=== PATIENT | female | born 1950 | race Caucasian/White ===

== ENCOUNTER 2017-02-18 14:05 | Emergency (ER) | payer MEDICARE, MEDICAID ==
[2017-02-18] MEDS ORDERED: OXYCODONE-ACETAMINOPHEN 5-325 MG TABLET PO ONE (14:27)
[2017-02-18] MEDS ORDERED: ONDANSETRON 4 MG TAB.RAPDIS PO ONE (14:27)
--- NOTE | 2017-02-18 14:31 | ER Document Report ---
ED Medical Screen (RME) - General Chief Complaint: Fall Injury Stated Complaint: FALL RIGHT ARM INJURY Mode of Arrival: Ambulatory Information source: Patient TRAVEL OUTSIDE OF THE [place] IN LAST 30 DAYS: No - HPI Onset: Yesterday - LAST PM Onset/Duration: Sudden Quality of pain: Sharp, Throbbing Severity: Moderate Associated Symptoms: None Exacerbated by: Movement Relieved by: Remaining still - Related Data Allergies/Adverse Reactions: No Known Allergies Allergy (Verified 02/18/17 14:24) Past Medical History - General Information source: Patient - Past Medical History Cardiac Medical History: Reports: Hx Hypercholesterolemia, Hx Hypertension Pulmonary Medical History: Reports: Hx Pneumonia Denies: Hx Tuberculosis Renal/ Medical History: Denies: Hx Peritoneal Dialysis Past Surgical History: Reports: Hx Tubal Ligation. Denies: Hx Pacemaker - Immunizations Hx Diphtheria, Pertussis, Tetanus Vaccination: Yes Review of Systems - Review of Systems Constitutional: No symptoms reported EENT: No symptoms reported Cardiovascular: No symptoms reported Respiratory: No symptoms reported Musculoskeletal: See HPI Physical Exam - Vital signs Vitals: Temp Pulse Resp BP Pulse Ox 98.1 F 92 20 226/105 H 99 02/18/17 14:10 02/18/17 14:10 02/18/17 14:10 02/18/17 14:10 02/18/17 14:10 Interpretation: Hypertensive. No: Tachycardic, Tachypneic, Febrile - General General appearance: Appears well, Alert In distress: None - HEENT Head: Normocephalic Eyes: Normal Conjunctiva: Normal - Respiratory Respiratory status: No respiratory distress Chest status: Other - R. BREAST ABSENT - Cardiovascular Rhythm: Regular - Back Back: Normal - Extremities General upper extremity: No: Normal inspection - EDEMA, TENDERNESS R. UPPER EXTREMITY FROM MID-ARM TO MID-FOREARM. N/V OK DISTALLY General lower extremity: Normal inspection - Neurological Neuro grossly intact: Yes Cognition: Normal Orientation: AAOx4 - Psychological Associated symptoms: Normal affect, Normal mood - Skin Skin Temperature: Warm Skin Moisture: Dry Skin Color: Normal Skin Turgor: Elastic Course - Vital Signs Vital signs: Temp Pulse Resp BP Pulse Ox 97.5 F 76 18 141/68 H 92 02/18/17 16:21 02/18/17 16:21 02/18/17 16:21 02/18/17 16:21 02/18/17 16:21 Doctor's Discharge - Discharge Clinical Impression: Elbow fracture, right Qualifiers: Encounter type: initial encounter Fracture type: closed Qualified Code(s): S42.401A - Unspecified fracture of lower end of right humerus, initial encounter for closed fracture Elbow injury Qualifiers: Encounter type: initial encounter Laterality: right Qualified Code(s): S59.901A - Unspecified injury of right elbow, initial encounter Condition: Stable Disposition: HOME, SELF-CARE Instructions: Splint Precautions ([facility]), Supracondylar Fracture of the Elbow ( [facility]) Prescriptions: Oxycodone HCl/Acetaminophen [Percocet 5-325 mg Tablet] 1 - 2 tab PO Q4H PRN #25 tablet PRN Reason: Referrals: PEPE TAYLOR MD [ACTIVE STAFF] - Follow up tomorrow
[2017-02-18] MEDS ORDERED: HYDROMORPHONE HCL INJ/PF 2 MG/ML AMPULE IM ONE (15:03)
--- NOTE | 2017-02-18 15:47 | ER Document Report ---
ED General - General Chief Complaint: Fall Injury Stated Complaint: FALL RIGHT ARM INJURY Mode of Arrival: Ambulatory Information source: Patient Notes: 59-year-old female presents with complaints of right elbow pain since last night. Patient notes she tripped and landed on her elbow but did not come in. Patient denies any other injuries TRAVEL OUTSIDE OF THE [place] IN LAST 30 DAYS: No - HPI Onset: Yesterday Onset/Duration: Sudden Quality of pain: Sharp Severity: Moderate Pain Level: 2 Associated symptoms: Other Exacerbated by: Movement Relieved by: Denies Similar symptoms previously: No Recently seen / treated by doctor: No - Related Data Allergies/Adverse Reactions: No Known Allergies Allergy (Verified 02/18/17 14:24) Past Medical History - General Information source: Patient - Social History Smoking Status: Never Smoker Cigarette use (# per day): No Chew tobacco use (# tins/day): No Smoking Education Provided: No Frequency of alcohol use: Heavy Family History: Reviewed & Not Pertinent Patient has suicidal ideation: No Patient has homicidal ideation: No - Past Medical History Cardiac Medical History: Reports: Hx Hypercholesterolemia, Hx Hypertension Pulmonary Medical History: Reports: Hx Pneumonia Denies: Hx Tuberculosis Renal/ Medical History: Denies: Hx Peritoneal Dialysis Past Surgical History: Reports: Hx Tubal Ligation. Denies: Hx Pacemaker - Immunizations Hx Diphtheria, Pertussis, Tetanus Vaccination: Yes Hx Pneumococcal Vaccination: 09/03/12 Review of Systems - Review of Systems Notes: REVIEW OF SYSTEMS: CONSTITUTIONAL : Denies fever, chills, or sweats. Denies recent illness. EENT: Denies eye, ear, throat, or mouth pain or symptoms. Denies nasal or sinus congestion or discharge. Denies throat, tongue, or mouth swelling or difficulty swallowing. CARDIOVASCULAR: Denies chest pain. Denies palpitations or racing or irregular heart beat. Denies ankle edema. RESPIRATORY: Denies cough, cold, or chest congestion. Denies shortness of breath, difficulty breathing, or wheezing. GASTROINTESTINAL: Denies abdominal pain or distention. Denies nausea, vomiting , or diarrhea. Denies blood in vomitus, stools, or per rectum. Denies black, tarry stools. Denies constipation. GENITOURINARY: Denies difficulty urinating, painful urination, burning, frequency, blood in urine, or discharge. FEMALE GENITOURINARY: Denies vaginal bleeding, heavy or abnormal periods, irregular periods. Denies vaginal discharge or odor. MUSCULOSKELETAL: Admits to right elbow pain SKIN: Denies rash, lesions or sores. HEMATOLOGIC : Denies easy bruising or bleeding. LYMPHATIC: Denies swollen, enlarged glands. NEUROLOGICAL: Denies confusion or altered mental status. Denies passing out or loss of consciousness. Denies dizziness or lightheadedness. Denies headache. Denies weakness or paralysis or loss of use of either side. Denies problems with gait or speech. Denies sensory loss, numbness, or tingling. Denies seizures. PSYCHIATRIC: Denies anxiety or stress. Denies depression, suicidal ideation, or homicidal ideation. ALL OTHER SYSTEMS REVIEWED AND NEGATIVE. Dictation was performed using [employer] voice recognition software PHYSICAL EXAMINATION: GENERAL: Well-appearing, well-nourished and in no acute distress. HEAD: Atraumatic, normocephalic. EYES: Pupils equal round and reactive to light, extraocular movements intact, conjunctiva are normal. ENT: Nares patent, oropharynx clear without exudates. Moist mucous membranes. NECK: Normal range of motion, supple without lymphadenopathy LUNGS: Breath sounds clear to auscultation bilaterally and equal. No wheezes rales or rhonchi. HEART: Regular rate and rhythm without murmurs ABDOMEN: Soft, nontender, nondistended abdomen. No guarding, no rebound. No masses appreciated. Female : deferred Musculoskeletal: Limited range of motion of the right elbow with obvious ecchymosis swelling superficial abrasion NEUROLOGICAL: Cranial nerves grossly intact. Normal speech, normal gait. Normal sensory, motor exams PSYCH: Normal mood, normal affect. SKIN: Warm, Dry, normal turgor, no rashes or lesions noted. Physical Exam - Vital signs Vitals: Temp Pulse Resp BP Pulse Ox 98.1 F 92 20 226/105 H 99 02/18/17 14:10 02/18/17 14:10 02/18/17 14:10 02/18/17 14:10 02/18/17 14:10 Course - Re-evaluation Re-evalutation: 02/18/17 16:01 Area was cleansed placed in splint, I did speak with , requests pt follow up in his office After performing a Medical Screening Examination, I estimate there is LOW risk for INTRACRANIAL HEMORRHAGE, UNSTABLE SPINE FRACTURE, CENTRAL CORD SYNDROME, CAUDA EQUINA, THORACIC AORTIC DISSECTION, PNEUMOTHORAX, PERFORATED BOWEL, RUPTURED ABDOMINAL AORTIC ANEURYSM, ACUTE TENDON RUPTURE, COMPARTMENT SYNDROME, or OPEN FRACTURE, thus I consider the discharge disposition reasonable. Also, there is no evidence or peritonitis, sepsis, or toxicity. I have reevaluated this patient multiple times and no significant life threatening changes are noted. The patient and I have discussed the diagnosis and risks, and we agree with discharging home to follow-up with their primary doctor with the understanding that symptoms and presentations can change. We also discussed returning to the Emergency Department immediately if new or worsening symptoms occur. We have discussed the symptoms which are most concerning (e.g., bloody stool, fever, changing or worsening pain, vomiting) that necessitate immediate return. - Vital Signs Vital signs: Temp Pulse Resp BP Pulse Ox 98.1 F 92 20 226/105 H 99 02/18/17 14:10 02/18/17 14:10 02/18/17 14:10 02/18/17 14:10 02/18/17 14:10 - Diagnostic Test Radiology reviewed: Image reviewed, Reports reviewed - Report given to patient Procedures - Immobilization Right Shoulder Time completed: 16:04 Pre-Proc Neuro Vasc Exam: Normal Immobilizer type: Long arm posterior, Sling Performed by: PCT Post-Proc Neuro Vasc Exam: Normal Alignment checked and good: Yes Discharge - Discharge Clinical Impression: Elbow fracture, right Qualifiers: Encounter type: initial encounter Fracture type: closed Qualified Code(s): S42.401A - Unspecified fracture of lower end of right humerus, initial encounter for closed fracture Elbow injury Qualifiers: Encounter type: initial encounter Laterality: right Qualified Code(s): S59.901A - Unspecified injury of right elbow, initial encounter Condition: Stable Disposition: HOME, SELF-CARE Instructions: Splint Precautions ([facility]), Supracondylar Fracture of the Elbow ( [facility]) Prescriptions: Oxycodone HCl/Acetaminophen [Percocet 5-325 mg Tablet] 1 - 2 tab PO Q4H PRN #25 tablet PRN Reason: Referrals: PEPE TAYLOR MD [ACTIVE STAFF] - Follow up tomorrow
[2017-02-18 16:25] VITALS: BP 141/68
== END 2017-02-18 16:21 | disposition home or self-care (01) ==
LOC: ER 14:05
PROC: 2W38X1Z Immobilization of Right Upper Extremity using Splint (ICD-10-PCS; principal; 2017-02-18)
DX: S42.401A Unspecified fracture of lower end of right humerus, initial encounter for closed fracture (principal); W01.10XA Fall on same level from slipping, tripping and stumbling with subsequent striking against unspecified object, initial encounter; E78.00 Pure hypercholesterolemia, unspecified; I10 Essential (primary) hypertension; Z98.51 Tubal ligation status
CPT/HCPCS: 99284; 96372; 73080; 29105; A9270 ×2; J1170; S0119

== ENCOUNTER → 2017-02-20 | Outpatient (CLI) | payer MEDICARE, MEDICAID | LOC: RAD 10:43 | PROVIDERS: ATTEND Orthopaedic Surgery | DX: S59.901A Unspecified injury of right elbow, initial encounter (principal) ==

== ENCOUNTER 2017-03-06 09:49 | Inpatient (IN) | payer MEDICARE, MEDICAID ==
[2017-03-02 11:44] LABS: ABSOLUTE EOSINOPHILS # (AUTO) 0.1 10^3/uL (0.0-0.6); ABSOLUTE LYMPHOCYTES (AUTO) 1.4 10^3/uL (0.5-4.7); ABSOLUTE MONOCYTES (AUTO) 0.5 10^3/uL (0.1-1.4); ABSOLUTE NEUT (AUTO) 4.2 10^3/uL (1.7-8.2); BASOPHILS % (AUTO) 0.7 % (0-2); EOSINOPHILS % (AUTO) 1.3 % (0-6); HEMATOCRIT 37.1 % (36.0-47.0); HEMOGLOBIN 12.6 g/dL (12.0-15.5); HGB HCT DIFFERENCE 0.7; LYMPHOCYTES % (AUTO) 22.2 % (13-45); MEAN CORPUSCULAR HEMOGLOBIN 30.4 pg (27.0-33.4); MEAN CORPUSCULAR VOLUME 90 fl (80-97); MONOCYTES % (AUTO) 7.7 % (3-13); RED BLOOD COUNT 4.14 10^6/uL (3.72-5.28); SEGMENTED NEUTROPHILS % (AUTO) 68.1 % (42-78); WHITE BLOOD COUNT 6.1 10^3/uL (4.0-10.5)
[2017-03-02 11:52] LABS: APPEARANCE,URINE CLOUDY; BILIRUBIN,URINE NEGATIVE (NEGATIVE); GLUCOSE, URINE NEGATIVE (NEGATIVE); KETONES,URINE NEGATIVE (NEGATIVE); LEUKOCYTE ESTERASE,URINE NEGATIVE (NEGATIVE); NITRITE,URINE NEGATIVE (NEGATIVE); PROTEIN,URINE NEGATIVE (NEGATIVE); URINE SPECIFIC GRAVITY 1.021; UROBILINOGEN,URINE NEGATIVE mg/dL (<2.0)
[2017-03-02 12:05] LABS: ANION GAP 12 (5-19); BLOOD UREA NITROGEN 18 mg/dL (7-20); CALCIUM 9.3 mg/dL (8.4-10.2); CARBON DIOXIDE 30 mmol/L (22-30); CHLORIDE 99 mmol/L (98-107); CREATININE RESULT 0.66 mg/dL (0.52-1.25); GLUCOSE 88 mg/dL (75-110); POTASSIUM 3.5 mmol/L (3.6-5.0); SODIUM 140.8 mmol/L (137-145)
--- NOTE | 2017-03-02 12:08 | EKG REPORT ---
SEVERITY:- NORMAL ECG - SINUS RHYTHM : Confirmed by: Remington Becerril 02-Mar-2017 12:07:03
[~2017-03-06 09:49] MED LIST: CEFAZOLIN 2 GM/D5W RTU 2 GM/50 ML RTUPB IV PRN; LACTATED RINGERS 1000 ML IV PRN; LIDOCAINE 0.5% INJ-PF (5 MG/ML) 50 ML SDV SUBCUT PRN
[2017-03-06] MEDS ORDERED: ALBUTEROL SULFATE 0.083% NEB 2.5 MG/3 ML AMPUL NEB ONE ×2 (10:39→11:00)
[2017-03-06] MEDS ORDERED: HYDROMORPHONE HCL INJ/PF 2 MG/ML AMPULE ONE (12:34)
[2017-03-06] MEDS ORDERED: FENTANYL CITRATE INJ/PF 250 MCG/5 ML AMPULE ONE (12:34)
[2017-03-06] MEDS ORDERED: IBUPROFEN INJ 800 MG/8 ML VIAL IV ONE (12:35)
[2017-03-06] MEDS ORDERED: PROPOFOL INJ 200 MG/20 ML VIAL IV ONE (12:35)
[2017-03-06] MEDS ORDERED: MIDAZOLAM 2 MG/2 ML INJ ONE (12:35)
[2017-03-06] MEDS ORDERED: FENTANYL CITRATE INJ/PF 100 MCG/2 ML AMPUL IV PRN ×3 (12:37)
[2017-03-06] MEDS ORDERED: VANCOMYCIN HCL INJ 1000 MG VIAL ONE (15:24)
[2017-03-06] MEDS ORDERED: BUPIVACAINE HCL 0.5 % INJ/PF 30 ML SDV ONE (15:56)
[2017-03-06] MEDS ORDERED: ONDANSETRON 4 MG TAB.RAPDIS PO PRN (16:37)
[2017-03-06] MEDS ORDERED: MORPHINE SULFATE 10 MG/ML INJ IV PRN ×3 (16:37)
[2017-03-06] MEDS ORDERED: DIPHENHYDRAMINE HCL 50 MG/ML VIAL IV PRN (16:37)
[2017-03-06] MEDS ORDERED: MORPHINE SULFATE 10 MG/ML INJ IM PRN (16:37)
[2017-03-06] MEDS ORDERED: POTASSI CL 20 MEQ/D5-1/2NS 1L 1,000 ML IV PRN (16:37)
[2017-03-06] MEDS ORDERED: IPRATROPIUM/ALBUTEROL 0.5-2.5 MG/3 ML AMPUL NEB ONE (16:55)
[2017-03-06] MEDS ORDERED: LABETALOL HCL INJ 20 MG/4 ML DISP.SYRIN IV ONE (16:55)
--- NOTE | 2017-03-06 17:05 | Operative Report ---
Operative Report DATE OF SURGERY: 03/06/17 PREOPERATIVE DIAGNOSIS: Right Comminuted Distal Humerus Fracture, Olecranon Fracture POSTOPERATIVE DIAGNOSIS: Same + Contusion Ulnar Nerve OPERATION: 1. Total Elbow Arthoplasty. 2. Ulnar Nerve Neurolysis w/ Subcutaneous Transposition. 3. ORIF Olecranon SURGEON: BONITA ROBERT ANESTHESIA: GA COMPLICATIONS: None ESTIMATED BLOOD LOSS: 75cc PROCEDURE: Indication for above procedure: 67-year-old female who sustained a fall onto her right elbow resulting in a comminuted distal humerus fracture with concomitant olecranon fracture. She said swelling followed up at my office at which point we discussed treatment options including nonoperative treatment versus operative intervention which includes open reduction internal fixation versus total elbow arthroplasty after discussing the operative alternatives a joint decision was made to proceed with operative intervention. Specific risks of total elbow arthroplasty were explained including infection, neurovascular injury, failure, periprosthetic fracture, need for chronic weightbearing restrictions patient verbalized understanding consented for the procedure. Procedure In Detail: Patient was seen and evaluated in the preoperative holding area. The RIGHT upper extremity was initialized and marked. Patient received 2g of Ancef IV for bacterial prophylaxis. Patient was taken back to the operative room where transferred to the operative table and placed under general anesthesia. Once they were adequately anesthetized a surgical team debriefing was performed ensuring all instrumentation was available, the surgical procedure was discussed with possible concerns reviewed. The upper extremity was prepped with ChloraPrep and draped in a sterile fashion. A timeout was done identifying correct patient, procedure and extremity everyone in attendance agree with this and verbalized no concerns. A sterile tourniquet was placed around the right upper extremity. The extremity was then exsanguinated and tourniquet inflated to 250 mmHg. Skin incision was made centered over the olecranon curved in a lateral direction. Blunt dissection was performed elevating skin flaps. There was disruption of the extensor mechanism along with the olecranon fracture and thus a original En-Moorey flap could not be performed. I first identified the ulnar nerve proximally as it passed the medial intermuscular septum there was significant scarring of the nerve to the displaced medial epicondyle fracture the nerve was followed distally as it entered the cubital tunnel. Significant thinning of the nerve and contusion was identified at this level. A vessel loop was placed around the nerve I continued to tract the nerve I distal direction as it entered the 2 heads of the FCU the fascia of the FCU was then carefully elevated at this juncture the nerve was released proximally as it crossed the medial intermuscular septum/triceps and distally in the FCU the first motor branch was identified and preserved. I then carefully transposed the ulnar nerve within a subcutaneous pocket medially which would allow for later transposition at the completion of the case. I then released the posterior band of the MCL and took a large flap of tissue off the olecranon to allow for later repair my extensor mechanism despite its disruption at the level of the olecranon fracture. The olecranon tip was maintained to its attachment within the triceps tendon. At this juncture the ulnohumeral joint was exposed. There is significant comminution of the trochlea and capitellum. Given the amount of comminution and bone loss at the level of the supracondylar aspect of the distal humerus I do not feel open reduction fixation would be feasible and patient would likely achieve a better outcome with total elbow arthroplasty despite the extensor mechanism disruption. I then carefully dissected out the lateral condyle fracture fragments and removed them in their entirety along with the capitellum, medial condyle and trochlea. I then proceeded with preparation of the distal humerus. With a bur the humeral canal was identified. I then began with my starting awl and placed the cutting guide onto the distal humerus. Freshening bone cuts were completed and a begin broaching broaching to a extra small size humeral component. The trial was then placed and was able to be seated to the roof of the olecranon fossa. With external rotation of the forearm the olecranon was exposed. I once again used a bur to obtain my starting point within the olecranon and shell out a groove for placement of my olecranon component. Once again used starting awl and began broaching broaching to a extra small broach. I then placed the trial components unfortunately patient lacked full extension thus I returned to broaching of both the distal humerus and olecranon until both implants were further seated to allow easy full passive extension. C-arm fluoroscopy was obtained confirming appropriate placement of the trial components. Once I was satisfied with my trial components and range of motion I proceeded with preparation of final implantation. The wound was copiously irrigated with pulse lavage the humeral and ulnar canals were then prepared drying the intricacies along the cancellus bone to allow better fixation of the cement. On the back table the cement was then prepared with cement pressurization. A cement restrictor was placed both in the ulna and humerus. Cement was then placed in the humeral canal first the humerus impacted into position. Because of patient's tight fit within the humerus I was unable to get the osseous wafer anteriorly to allow further fixation the patient had excellent fixation within the canal any excess cement was then removed. Then turned my attention to the ulnar component. Once again cement was pressurized in the ulnar component was secured into position. Any excess cement was removed. I then reduced the final components and secured them with the locking mechanism. Patient had full passive flexion and extension. The elbow was then held in full extension until cement hardening was complete. C-arm fluoroscopy was then obtained demonstrating appropriate placement of my final implants with full passive and active motion. The wound was once again copiously irrigated with normal saline and the tourniquet was deflated. Any peripheral vasculature was coagulated with cautery. I then proceeded with fixation of my olecranon fracture. Because the osseous portion was a small tip I proceeded with a En-Moorey type fixation. Drill holes were placed obliquely within the olecranon I then passed a #5 FiberWire laterally to medially and through the olecranon tip fragment and then a locking stitch was placed within the tendinous portion of my size sepsis and passed laterally with a locking stitch and finally completing it with a cruciate type configuration a second drill hole was placed within the olecranon and with the elbow in full extension this was secured. A second transverse drill was then placed and a mattress suture was placed through the tendinous portion of the triceps. I was able to flex the patient to 80 without gapping. The residual soft tissue from the transverse fracture was then closed with interrupted #2 FiberWire. The mobile wad laterally and flexor pronator were reapproximated to the extensor mechanism using 0 Vicryl suture. 20 mL of 0.5% Marcaine without epinephrine was injected for postoperative pain control. I then transposed the ulnar nerve and secured in a subcutaneous pocket anteriorly with 0 Vicryl suture. 1 g of vancomycin powder was then placed within the wound for bacterial prophylaxis. Subcutaneous tissues were closed with interrupted 2-0 Vicryl suture. Skin was closed with yeison. An Acticoat dressing was placed and patient was placed in a plaster splint in 20 of elbow extension. Sponge counts, instrument counts, needle counts counts were correct. Patient was then awoken from anesthesia. Transferred from the operating room table to the operating room stretcher. There was no intraoperative complications patient tolerated procedure well stable to PACU. Postoperative plan: Patient will be admitted for proximally 48-72 hours postoperatively for bacterial prophylaxis and to maintain immobilization of her elbow. Patient will follow-up with me in 14 days at which point we will transition her to a long arm cast due to patient's questionable compliance issues after discussing postoperative rehabilitation with the family. At 4 weeks postoperatively patient will be transitioned to a hinged elbow brace with range of motion 0 of extension and 60 of flexion. We will increase flexion 30 per week with goals of full active flexion by week 8 postoperative.
[2017-03-06] MEDS ORDERED: PREGABALIN 75 MG CAPSULE PO SCH (18:00)
[2017-03-06] MEDS ORDERED: SUCCINYLCHOLINE CHLORIDE INJ 200 MG/10 ML VIAL ONE (19:09)
[2017-03-06] MEDS ORDERED: ONDANSETRON HCL INJ/PF 4 MG/2 ML SDV ONE (19:09)
[2017-03-06] MEDS ORDERED: IPRATROPIUM/ALBUTEROL 0.5-2.5 MG/3 ML AMPUL NEB PRN (19:14)
[2017-03-06] MEDS: KETOROLAC TROMETHAMINE INJ/PF 30 MG/1 ML SDV IV SCH (19:45)
[2017-03-06] MEDS ORDERED: ENALAPRILAT DIHYDRATE INJ/PF 1.25 MG/1 ML SDV IV PRN (19:56)
[2017-03-06] MEDS: OXYCODONE HCL IR 5 MG TABLET PO PRN (20:51)
[2017-03-06] MEDS: RIVAROXABAN 10 MG TABLET PO SCH (22:20)
[2017-03-06] MEDS: PREGABALIN 75 MG CAPSULE PO SCH (22:20)
[2017-03-06] MEDS: OXYCODONE HCL SR 10 MG TABLET PO SCH (22:20)
[2017-03-06] MEDS ORDERED: ACETAMINOPHEN 100 ML IV ONE (22:37)
[2017-03-07] MEDS: KETOROLAC TROMETHAMINE INJ/PF 30 MG/1 ML SDV IV SCH ×4 (01:34→18:00)
[2017-03-07] MEDS ORDERED: VANCOMYCIN HCL 1,000 MG in DEXTROSE 5%-WATER 250 ML IV ONE (04:30)
[2017-03-07] MEDS: PREGABALIN 75 MG CAPSULE PO SCH ×2 (10:00→22:11)
[2017-03-07] MEDS: OXYCODONE HCL SR 10 MG TABLET PO SCH ×2 (10:00→22:10)
[2017-03-07] MEDS ORDERED: LORAZEPAM 1 MG TABLET ONE (12:09)
[2017-03-07] MEDS ORDERED: AMLODIPINE BESYLATE 5 MG TABLET ONE (12:10)
[2017-03-07] MEDS: RIVAROXABAN 10 MG TABLET PO SCH (22:10)
[2017-03-08] MEDS: KETOROLAC TROMETHAMINE INJ/PF 30 MG/1 ML SDV IV SCH ×3 (01:31→11:08)
[2017-03-08 05:01] LABS: HEMATOCRIT 25.9 % (36.0-47.0); HEMOGLOBIN 8.9 g/dL (12.0-15.5); HGB HCT DIFFERENCE 0.8; MEAN CORPUSCULAR HEMOGLOBIN 30.6 pg (27.0-33.4); MEAN CORPUSCULAR HGB CONC 34.4 g/dL (32.0-36.0); MEAN CORPUSCULAR VOLUME 89 fl (80-97); RED BLOOD COUNT 2.91 10^6/uL (3.72-5.28); RED CELL DISTRIBUTION WIDTH 13.9 % (11.5-14.0); WHITE BLOOD COUNT 7.7 10^3/uL (4.0-10.5)
[2017-03-08] MEDS: LANSOPRAZOLE 30 MG TAB.RAP.DR PO SCH (05:50)
--- NOTE | 2017-03-08 07:37 | PDOC PROGRESS REPORT ---
Subjective Progress Note for:: 03/08/17 Subjective:: Patient seen this AM. Pain controlled. Denies CP/SOB Physical Exam Vital Signs: Temp Pulse Resp BP Pulse Ox 98.3 F 79 16 159/63 H 94 03/08/17 04:00 03/08/17 04:00 03/08/17 04:00 03/08/17 04:00 03/08/17 04:00 Intake & Output 03/07/17 03/08/17 03/09/17 06:59 06:59 06:59 Intake Total 7290 600 Output Total 5375 200 Balance 1915 400 Weight 67.7 kg Musculoskeletal exam: PRESENT: other - Right UE: Splint c/d/i, intact flexion/ extension of the digits, no pain w/ PROM. Intact sensation to light touch. Results Laboratory Results: 03/08/17 03:55 03/06/17 10:18 03/08/17 03:55 WBC 7.7 RBC 2.91 L Hgb 8.9 L Hct 25.9 L MCV 89 MCH 30.6 MCHC 34.4 RDW 13.9 Plt Count 173 Impressions: Chest X-Ray 03/02/17 11:18 IMPRESSION: NO SIGNIFICANT RADIOGRAPHIC FINDING IN THE CHEST. Elbow X-Ray 03/06/17 00:00 IMPRESSION: Elbow arthroplasty. Fluoroscopy 03/06/17 00:00 IMPRESSION: Elbow arthroplasty. Assessment & Plan - Diagnosis (1) Humerus distal fracture Qualifiers: Encounter type: subsequent encounter Fracture type: closed Fracture alignment: displaced Laterality: right Fracture healing: with routine healing Is this a current diagnosis for this admission?: YesPlan: S/P TEA 1. Pain control 2. Hand ROM 3. Xarelto 4. Acute anemia currently stable 5. D/C Home Sunday03/09/17
[2017-03-08 07:58] LABS: HEMATOCRIT 29.6 % (36.0-47.0); HEMOGLOBIN 10.1 g/dL (12.0-15.5); HGB HCT DIFFERENCE 0.7; MEAN CORPUSCULAR HEMOGLOBIN 30.5 pg (27.0-33.4); MEAN CORPUSCULAR HGB CONC 34.1 g/dL (32.0-36.0); MEAN CORPUSCULAR VOLUME 90 fl (80-97); RED BLOOD COUNT 3.31 10^6/uL (3.72-5.28); RED CELL DISTRIBUTION WIDTH 13.9 % (11.5-14.0); WHITE BLOOD COUNT 7.5 10^3/uL (4.0-10.5)
--- NOTE | 2017-03-08 09:10 | CONSULTATION REPORT E ---
Consultation Report NAME: SARA COLVIN : 1950 AGE: 67Y DATE: 03/07/2017 403 A TO: AKIN HOLGUIN NP FROM: BRYSON ROBERT D.O. Requesting Physician CODE STATUS: FULL CODE. ATTENDING: Bryson Robert REASON FOR CONSULTATION: Hypertension in postoperative patient. HISTORY OF PRESENT ILLNESS: The patient is a 67-year-old female with a past medical history of hypertension and alcohol dependency. The patient underwent operative repair involving the right elbow, complete arthroscopy on 03/06/[address] Robert. This was done due to injury sustained from a fall on 02/17/2017. Postoperatively the patient developed elevated blood pressures and was covered with p.r.n. Apresoline and the hospitalists were consulted for management. Upon discussion with the patient, she has been diagnosed with hypertension in the past but does not take any medications. The patient also is a daily drinker and is described to drink "14/05." The patient does admit to having shakes if she does not consume alcohol. The patient has no desire to quit at this time. Discussed the case with Orthopedics and feel that the patient will require a couple of days hospitalization given her weak state. The patient has had no nausea, vomiting, or diarrhea. No shortness of breath, dizziness, or chest pain. No fever or chills. The patient has been afebrile. Blood pressures have been controlled after the dose of Apresoline. The patient does not voice any other concerns at this time. PAST MEDICAL HISTORY: Remarkable for: 1. Hypertension. 2. Alcohol dependency. 3. History of breast cancer. PAST SURGICAL HISTORY: Includes left lumpectomy. ALLERGIES: No known drug allergies. HOME MEDICATIONS: Include Percocet 5/325 one tablet p.o. q.4 hours p.r.n. SOCIAL HISTORY: The patient currently resides at home. She is single. The patient does consume alcohol on a daily basis and is a heavy drinker. The patient is a smoker. She smokes 1 pack a day for which she has for 50 years, equating a 50-pack year history. The patient denies any illicit drug use. The patient's surrogate decision maker is her sister. FAMILY MEDICAL HISTORY: Noncontributory. The patient denies any family history of cancers or heart disease. REVIEW OF SYSTEMS: CONSTITUTIONAL: The patient denies any fevers or chills. No dizziness, weakness, loss of appetite. SKIN: The patient denies any diaphoresis, rash, bruising, or itching. HEENT: Denies any vision changes, hearing loss, nasal drainage, sore throat, or headache. CARDIOVASCULAR: Denies any chest pain, edema, heart palpitations. RESPIRATORY: Denies any cough, sputum production, or hemoptysis. No shortness of breath. GASTROINTESTINAL: Denies any nausea, vomiting, diarrhea, abdominal pain, bloating, hematemesis, constipation, melena, hematochezia. No epigastric pain. GENITOURINARY: Denies any hematuria, polyuria, or dysuria. MUSCULOSKELETAL: The patient does have acute joint pain of the right elbow but does have chronic back pain. NEUROLOGIC: Denies any seizures, tremors, or loss of consciousness. HEMATOLOGICAL: Denies any latanya bleeding. Does admit to easy bruising. ENDOCRINE: Denies any recent weight changes. PSYCHIATRIC: Denies suicidal or homicidal ideation. Rest of the other organ systems is negative. PHYSICAL EXAMINATION: GENERAL: On examination, the patient is a well-developed, well-nourished, 67-year-old female who is awake, alert, and oriented to person, place, time, and situation. She is verbal, conversational, ambulatory, and does not appear to be in any acute distress. VITAL SIGNS: Temperature 98.0, pulse 87, respirations 20, blood pressure 130/53, oxygen saturation is 98% on room air. SKIN: Warm and dry. No rash. She is not diaphoretic. HEENT: Pupils equal, round, reactive to light and accommodation. Conjunctivae are pink. Sclerae not icterus. No mass or lesions. The patient has good dentition. NECK: Supple. There is no JVD. No lymphadenopathy or thyromegaly. CARDIOVASCULAR: Heart is regular. There is no murmur or rub. CHEST: Clear, symmetrical, unlabored. ABDOMEN: Soft, nontender, nondistended. Bowel sounds are present. No palpable organomegaly. BACK: No CVA tenderness or sacral edema. EXTREMITIES: No clubbing, cyanosis, edema, or peripheral signs of embolization. Pedal pulses 2+ noted bilaterally. PSYCHIATRIC: Appropriate affect. Pleasant mood. NEUROLOGIC: Intact. DIAGNOSTICS: Lab values are as follows: Hematology obtained on 03/07/2016: WBCs 7.5, hemoglobin is 10.1, hematocrit is 29.6, platelet count is 208,000. IMPRESSION AND PLAN: 1. Hypertension. The patient does have a diagnosis of hypertension, however, she has not been taking any medications for this. Will continue p.r.n. Apresoline but start the patient on a moderate dose of Norvasc and follow. 2. Alcohol dependency. Given desire for sobriety and the patient's injuries secondary to her alcoholism, will proceed with detox measures. Will schedule benzodiazepines and allow p.r.n. for breakthrough symptoms and monitor closely. 3. Tobacco dependency. Spent 3 minutes discussing smoking cessation education. The patient declines any pharmacological intervention at this time but will add p.r.n. nicotine patch. 4. Postoperative right elbow arthroplasty. Management as per Orthopedics. 5. DVT prophylaxis as per Orthopedics. DISPOSITION: The patient is a FULL CODE. Pending patient's symptomatology and diagnostic findings, will reevaluate in the a.m. Time spent on this consultation including assessment, plan, physical examination, patient education, specialty collaboration, and extensive review of the records from the previous 24 hours is 50 minutes. DICTATING PHYSICIAN: AKIN HOLGUIN NP [id number] PHY#: [id number] ID: [id number] JOB#: [id number] ACCT: [id number] cc:AKIN HOLGUIN NP >
[2017-03-08] MEDS: OXYCODONE HCL SR 10 MG TABLET PO SCH (09:30)
[2017-03-08] MEDS: PREGABALIN 75 MG CAPSULE PO SCH ×2 (09:30→21:45)
[2017-03-08] MEDS ORDERED: LORAZEPAM INJ 2 MG/1 ML VIAL IV PRN (14:08)
[2017-03-08] MEDS ORDERED: LORAZEPAM 0.5 MG TABLET PO ONE (14:15)
[2017-03-08] MEDS ORDERED: AMLODIPINE BESYLATE 5 MG TABLET PO ONE (14:15)
[2017-03-08 14:18] LABS: ANION GAP 6 (5-19); BLOOD UREA NITROGEN 21 mg/dL (7-20); CALCIUM 8.2 mg/dL (8.4-10.2); CARBON DIOXIDE 27 mmol/L (22-30); CHLORIDE 101 mmol/L (98-107); CREATININE RESULT 0.78 mg/dL (0.52-1.25); GLUCOSE 118 mg/dL (75-110); POTASSIUM 3.8 mmol/L (3.6-5.0); SODIUM 134.4 mmol/L (137-145)
--- NOTE | 2017-03-08 14:27 | PROGRESS NOTE E ---
Progress Note NAME: SARA COLVIN : 1950 AGE: 67Y DATE: 03/08/2017 ROOM: 403 SUBJECTIVE: The patient is currently sitting out of the bed to the bedside chair. She states she feels better today. She feels she has more energy. Her pain is reasonably controlled. The patient denies any nausea, vomiting, or diarrhea. No shortness of breath, dizziness, or chest pain. No fever or chills. The patient denies any tremors or evidence of alcohol withdraw at this time. The patient does not voice any other concerns at this time. REVIEW OF SYSTEMS: Rest of the review of systems negative. MEDICATIONS: Have been reviewed. OBJECTIVE: GENERAL: The patient is a 67-year-old female who is awake, alert, and oriented to person, place, time, and situation. She is verbal, conversational, ambulatory, and does not appear to be in any acute distress. VITAL SIGNS: Temperature 98.0, pulse 76, respirations 18, blood pressure 122/59, oxygen saturation is 96% on room air. SKIN: Warm and dry. No rash. Not diaphoretic. HEENT: Pupils equal, round, reactive to light and accommodation. Conjunctivae are pink. NECK: There is no JVD. CARDIOVASCULAR: Heart is regular with no murmur or rub. CHEST: Clear, symmetrical, unlabored. ABDOMEN: Soft, nontender, nondistended. BACK: No CVA tenderness or sacral edema. EXTREMITIES: No clubbing or cyanosis. The patient does have some edema of the left hand, what is visible outside of the soft cast but this is pink and warm. PSYCHIATRIC: Appropriate affect. Pleasant mood. DIAGNOSTICS: Lab values are as follows: Hematology obtained on 03/08/2017: WBCs are 7.7, hemoglobin is 8.9, hematocrit is 25.9, platelet count is 172,000. Chemistry is pending. IMPRESSION AND PLAN: 1. HYPOKALEMIA. This has been supplemented. Currently awaiting repeat chemistries. Will follow. 2. HYPERTENSION. The patient's blood pressures have been well controlled with the addition of Norvasc. Will continue. 3. ALCOHOL DEPENDENCY. Will continue scheduled benzodiazepines as well as p.r.n. for breakthrough symptoms. 4. POSTOPERATIVE RIGHT ELBOW. Management as per Orthopedics. 5. DVT PROPHYLAXIS. Will continue prophylaxis as per Orthopedics. DISPOSITION: The patient is a FULL CODE. Pending patient's symptomatology and diagnostic findings, will reevaluate in the a.m. Time spent on this followup including assessment, plan, physical examination, and patient education is 25 minutes. DICTATING PHYSICIAN: AKIN HOLGUIN NP [id number] PHY#: [id number] ID: [id number] JOB#: [id number] ACCT: [id number] cc: >
[2017-03-08] MEDS ORDERED: NICOTINE 14 MG/24 HR PATCH.TD24 TD PRN (15:04)
[2017-03-08] MEDS: LORAZEPAM 0.5 MG TABLET PO SCH (17:05)
[2017-03-08] MEDS: RIVAROXABAN 10 MG TABLET PO SCH (21:45)
[2017-03-09] MEDS: LORAZEPAM 0.5 MG TABLET PO SCH ×3 (00:05→11:30)
[2017-03-09] MEDS: LANSOPRAZOLE 30 MG TAB.RAP.DR PO SCH (05:32)
[2017-03-09 05:59] LABS: HEMATOCRIT 27.3 % (36.0-47.0); HEMOGLOBIN 9.4 g/dL (12.0-15.5); HGB HCT DIFFERENCE 0.9; MEAN CORPUSCULAR HGB CONC 34.5 g/dL (32.0-36.0); MEAN CORPUSCULAR VOLUME 90 fl (80-97); RED BLOOD COUNT 3.04 10^6/uL (3.72-5.28); RED CELL DISTRIBUTION WIDTH 13.7 % (11.5-14.0); WHITE BLOOD COUNT 7.4 10^3/uL (4.0-10.5)
[2017-03-09] MEDS: OXYCODONE HCL IR 5 MG TABLET PO PRN (07:40)
[2017-03-09] MEDS: PREGABALIN 75 MG CAPSULE PO SCH (09:12)
[2017-03-09 09:53] LABS: BLOOD UREA NITROGEN 17 mg/dL (7-20); CALCIUM 8.3 mg/dL (8.4-10.2); CARBON DIOXIDE 27 mmol/L (22-30); CHLORIDE 98 mmol/L (98-107); CREATININE RESULT 0.81 mg/dL (0.52-1.25); GLUCOSE 224 mg/dL (75-110)
[2017-03-09 09:54] LABS: ANION GAP 9 (5-19); SODIUM 134.1 mmol/L (137-145)
[2017-03-09] MEDS ORDERED: AMLODIPINE BESYLATE 5 MG TABLET PO SCH (10:00)
[2017-03-09 12:52] VITALS: BP 131/57
--- NOTE | 2017-03-09 13:46 | PDOC DISCHARGE SUMMARY ---
General - Admit/Disc Date/PCP Admission Date/Primary Care Provider: 03/06/17 09:49 SHASHANK ENGLISH MD Discharge Date: 03/09/17 - Discharge Diagnosis (1) Humerus distal fracture Is this a current diagnosis for this admission?: Yes - Additional Information Resuscitation Status: Full Code Discharge Diet: As Tolerated Discharge Activity: No Lifting Over 10 Pounds, No Lifting/Push/Pulling, Slowly Increase Activity Home Medications: Oxycodone HCl/Acetaminophen [Percocet 5-325 mg Tablet] 1 - 2 tab PO Q4H PRN 10/07 Aspirin [Aspirin 325 mg Tablet] 325 mg PO DAILY #21 03/06/17 Oxycodone HCl 5 mg PO Q6 PRN #45 tablet 03/06/17 Amlodipine Besylate [Norvasc 5 mg Tablet] 5 mg PO DAILY #30 tablet 03/09/17 History of Present Illness History of Present Illness: SARA COLVIN is a 67 year old female with a comminuted intra-articular right distal humerus fracture. Patient was seen in emergency room where she was placed in a splint and given pain medication. She subsequently followed up at the office which will be discussed findings on CT scan and treatment options after discussing treatment including operative versus nonoperative intervention joint decision was made to proceed with total elbow arthroplasty versus ORIF. Hospital Course Hospital Course: On 03/06/17 patient underwent total elbow arthroplasty with ORIF olecranon fracture and ulnar nerve neuro lysis. She successfully recovered in the PACU and was admitted to the hospital. Patient received vancomycin during her hospital stay. Her pain was controlled throughout her hospital course. The hospitalist were consulted for evaluation patient's hypertension and history of alcohol abuse. Patient progressed appropriately throughout her hospital course. Physical Exam Vital Signs: Temp Pulse Resp BP Pulse Ox 98.0 F 92 20 131/57 H 96 03/09/17 12:34 03/09/17 12:34 03/09/17 12:34 03/09/17 12:34 03/09/17 12:34 Intake & Output 03/08/17 03/09/17 03/10/17 06:59 06:59 06:59 Intake Total 600 2450 Output Total 200 0 Balance 400 2450 General appearance: PRESENT: no acute distress, cooperative Head exam: PRESENT: atraumatic, normocephalic Eye exam: PRESENT: conjunctiva pale Mouth exam: PRESENT: moist Respiratory exam: PRESENT: unlabored Cardiovascular exam: PRESENT: RRR Pulses: PRESENT: normal radial pulses Vascular exam: PRESENT: normal capillary refill Musculoskeletal exam: PRESENT: other - Right elbow: Splint clean/dry/intact no erythema or drainage. No pain with passive stretch of the digits. Patient has intact DIP, PIP and MP joint flexion/extension. FPL/EPL intact. Intact sensation to light touch. Neurological exam: PRESENT: alert, altered, awake, oriented to person, oriented to place, oriented to time Psychiatric exam: PRESENT: flat affect Results Laboratory Results: 03/09/17 04:45 03/08/17 03:55 03/07/17 03/08/17 03/09/17 04:12 03:55 04:45 WBC 7.4 RBC 3.04 L Hgb 9.4 L Hct 27.3 L MCV 90 MCH 31.0 MCHC 34.5 RDW 13.7 Plt Count 182 Sodium 134.1 L 134.4 L Potassium 4.0 3.8 Chloride 98 101 Carbon Dioxide 27 27 Anion Gap 9 6 BUN 17 21 H Creatinine 0.81 0.78 Est GFR ( Amer) > 60 > 60 Est GFR (Non-Af Amer) > 60 > 60 Glucose 224 H 118 H Calcium 8.3 L 8.2 L Impressions: Chest X-Ray 03/02/17 11:18 IMPRESSION: NO SIGNIFICANT RADIOGRAPHIC FINDING IN THE CHEST. Elbow X-Ray 03/06/17 00:00 IMPRESSION: Elbow arthroplasty. Fluoroscopy 03/06/17 00:00 IMPRESSION: Elbow arthroplasty. Plan Discharge Plan: Patient progressed appropriately throughout her hospital course and on 03/09/17 she was orthopedically stable for discharge to home. Patient was reiterated the fact that she may not remove the splint until she follows up at the office. She will continue digit range of motion attempting to make a full composite fist. Enteric-coated aspirin has been given for DVT prophylaxis. She will follow-up in the office in 10-14 days at which point we will start her on occupational therapy.
--- NOTE | 2017-03-09 14:14 | PROGRESS NOTE E ---
Progress Note NAME: SARA COLVIN : 1950 AGE: 67Y DATE: 03/09/2017 ROOM: 403 SUBJECTIVE: The patient is out of bed to the bedside chair. She states she feels better. She denies any nausea, vomiting, or diarrhea. No shortness of breath, dizziness, or chest pain. No fever or chills. The patient has been afebrile. Blood pressure has been in a good range. The patient is quite eager for discharge. The patient does not voice any other concerns at this time. REVIEW OF SYSTEMS: Rest of the review of systems negative. MEDICATIONS: Have been reviewed. PHYSICAL EXAMINATION: GENERAL: The patient is a 67-year-old female who is awake, alert, and oriented to person, place, and situation. She is verbal, conversational, and does not appear to be in any acute distress. VITAL SIGNS: Temperature 98.0, pulse 92, respirations 20, blood pressure 131/57, oxygen saturation is 96% on room air. SKIN: Warm and dry. No rash. Not diaphoretic. HEENT: Pupils equal, round, reactive to light and accommodation. Conjunctivae are pink. NECK: There is no JVD. CARDIOVASCULAR: Heart is regular with no murmur or rub. CHEST: Clear, symmetrical, unlabored. ABDOMEN: Soft, nontender, nondistended. BACK: No CVA tenderness or sacral edema. EXTREMITIES: No clubbing, cyanosis, or edema. NEUROLOGIC: Intact. DIAGNOSTICS: Lab values are as follows: Hematology obtained on 03/09/2017: WBCs are 7.4, hemoglobin is 9.4, hematocrit is 27.3, platelet count is 182,000. Chemistry obtained on 03/08/2017: Sodium is 134, potassium 3.8, chloride is 101, carbon dioxide 27, BUN 21, creatinine is 0.78, glucose 118, calcium is 9.2. IMPRESSION AND PLAN: 1. HYPOKALEMIA. This has been supplemented. Will follow. 2. HYPERTENSION. Blood pressures have been in a good range. Will continue Norvasc. Will also send a prescription for such to the patient's pharmacy for discharge. 3. ALCOHOL DEPENDENCY. Continue p.r.n. benzodiazepines as needed. 4. POSTOPERATIVE RIGHT ELBOW. Management as per Orthopedics. 5. DVT PROPHYLAXIS. Management as per Orthopedics. DISPOSITION: The patient is a FULL CODE. Pending patient's symptomatology and diagnostic findings, it appears that we will sign off at this time. If the patient's symptoms reoccur or if there is a change in the patient's status, please feel free to re-consult the hospitalist for input. Have sent prescriptions for the patient's blood pressure medications to her pharmacy. Time spent on this followup including assessment, plan, physical examination, patient education, is 20 minutes. DICTATING PHYSICIAN: AKIN HOGLUIN NP [id number] PHY#: [id number] ID: [id number] JOB#: [id number] ACCT: [id number] cc: >
== END 2017-03-09 14:49 | disposition home or self-care (01) | DRG 483 ==
LOC: INOR 09:49 → 4N 18:40
PROVIDERS: ADMIT Orthopaedic Surgery; ATTEND Orthopaedic Surgery
PROC: 0PSK04Z Reposition Right Ulna with Internal Fixation Device, Open Approach (ICD-10-PCS; 2017-03-06)
PROC: 01N40ZZ Release Ulnar Nerve, Open Approach (ICD-10-PCS; 2017-03-06)
PROC: 01S40ZZ Reposition Ulnar Nerve, Open Approach (ICD-10-PCS; 2017-03-06)
PROC: 0RRL0JZ Replacement of Right Elbow Joint with Synthetic Substitute, Open Approach (ICD-10-PCS; principal; 2017-03-06 12:00)
DX: S42.401D Unspecified fracture of lower end of right humerus, subsequent encounter for fracture with routine healing (principal); S52.021D Displaced fracture of olecranon process without intraarticular extension of right ulna, subsequent encounter for closed fracture with routine healing; S54.01XD Injury of ulnar nerve at forearm level, right arm, subsequent encounter; I10 Essential (primary) hypertension; E87.6 Hypokalemia; F10.20 Alcohol dependence, uncomplicated; F17.210 Nicotine dependence, cigarettes, uncomplicated; W19.XXXD Unspecified fall, subsequent encounter; Y90.9 Presence of alcohol in blood, level not specified; Z85.3 Personal history of malignant neoplasm of breast
CPT/HCPCS: 01760; 36415; 71020; 80048; 81001; 84132; 85025; 85027; 93005; 93010; 94799; C1776; G8978-GP; G8979-GP; G8980-GP; G8987-GO; G8988-GO; J0131; J0330; J0690; J1170; J1741; J1885; J2250; J2405; J2704; J3010; J3370; J3480; J3490; J7060; J7620